=== PATIENT | female | born 2000 | race Caucasian/White ===

== ENCOUNTER 2025-03-30 23:09 | Inpatient (IN) | payer BC ==
[~2025-03-30] VITALS: Ht 180.3 cm; Wt 86.2 kg
[2025-03-31] MEDS ORDERED: AMOX/CLAVULANATE 875 MG TABLET ONE (00:46)
[2025-03-31] MEDS ORDERED: ACETAMINOPHEN 325 MG TABLET ONE ×2 (00:46→08:45)
[2025-03-31] MEDS ORDERED: IBUPROFEN 600 MG TABLET ONE (00:46)
[2025-03-31] MEDS ORDERED: TDAP [DIPH/PERTUSSIS/TET] 0.5 ML VIAL IM ONE (00:46)
[2025-03-31] MEDS: TDAP [DIPH/PERTUSSIS/TET] 0.5 ML VIAL IM ONE (00:52)
[2025-03-31] MEDS: AMOX/CLAVULANATE 875 MG TABLET PO ONE (00:53)
[2025-03-31] MEDS: ACETAMINOPHEN 325 MG TABLET PO ONE (00:53)
[2025-03-31] MEDS: IBUPROFEN 600 MG TABLET PO ONE (00:53)
[2025-03-31] MEDS ORDERED: ONDANSETRON HCL/PF 4 MG/2 ML VIAL ONE (03:33)
[2025-03-31] MEDS ORDERED: MORPHINE SULFATE INJ 4 MG/ML DISP.SYRIN ONE (03:33)
[2025-03-31] MEDS: MORPHINE SULFATE INJ 2 MG/ML DISP.SYRIN IV ONE (03:44)
[2025-03-31] MEDS: ONDANSETRON HCL/PF - ER 4 MG/2 ML VIAL IV ONE (03:44)
[2025-03-31 03:59] LABS: PLATELET COUNT (AUTO) 300 K/uL (150-450); RED BLOOD CELL COUNT(AUTO) 4.48 MIL/uL (4.0-5.2); RED CELL DISTRIBUTION WIDTH 13.6 % (11.5-15.0); WHITE BLOOD COUNT (AUTO) 13.9 K/uL (4.3-11.0)
[2025-03-31 04:05] LABS: CALCIUM, SERUM 9.2 mg/dL (8.5-10.1); CREATININE 0.9 mg/dL (0.6-1.3); SODIUM SERUM 140.0 mmol/L (136-145); UREA NITROGEN, BLOOD 10.0 mg/dL (7-18)
[2025-03-31 04:13] LABS: INR 0.99 (0.91-1.10)
[2025-03-31] MEDS ORDERED: CEFAZOLIN 2 GM ONE (04:39)
[2025-03-31] MEDS: CEFAZOLIN 2 GM in IV D5W 100 ML IV ONE (05:00)
[2025-03-31] MEDS ORDERED: MAGNESIUM HYDROXIDE 30 ML UDC PO PRN (06:30)
[2025-03-31] MEDS ORDERED: DOSE PER PHARMACY (MD SPECIFY MEDICATION) 1 EA IV PRN (06:30)
[2025-03-31] MEDS ORDERED: NORG1TAB73 PO (07:25)
[2025-03-31] MEDS: ACETAMINOPHEN 325 MG TABLET PO PRN (08:51)
[2025-03-31] MEDS ORDERED: AMPICILLIN /SULBACTAM 3 G in IV NS 0.9% 50 ML IJ SCH (10:00)
[2025-03-31] MEDS: IV D5/0.45 NACL 1,000 ML IV PRN (10:40)
[2025-03-31] MEDS: PANTOPRAZOLE 40 MG VIAL IV SCH (10:41)
[2025-03-31] MEDS: ONDANSETRON HCL/PF 4 MG/2 ML VIAL IVP PRN (10:42)
[2025-03-31] MEDS: MORPHINE SULFATE INJ 4 MG/ML DISP.SYRIN IV PRN (10:43)
[2025-03-31] MEDS: AMPICILLIN /SULBACTAM 3 G in IV NS 0.9% 50 ML IV SCH (11:28)
[2025-03-31] MEDS ORDERED: HYDROMORPHONE INJ 2 MG/ML DISP.SYRIN ONE (13:48)
[2025-03-31] MEDS ORDERED: ROCURONIUM BROMIDE 50 MG/5 ML ONE (13:48)
[2025-03-31] MEDS ORDERED: MIDAZOLAM HCL 2 MG/2ML VIAL ONE (13:48)
[2025-03-31] MEDS ORDERED: VANCOMYCIN 1 GM VIAL ONE (13:59)
[2025-03-31] MEDS ORDERED: BUPIVACAINE 0.5 % PF 150 MG/30 ML VIAL ONE (13:59)
[2025-03-31 14:12] LABS: PREGNANCY TEST URINE QUAL NEGATIVE (NEGATIVE)
[2025-03-31] MEDS ORDERED: MORPHINE SULFATE INJ 4 MG/ML DISP.SYRIN IV PRN (16:30)
[2025-03-31] MEDS: HYDROCODONE/APAP 10/325MG TABLET PO PRN (17:53)
[2025-03-31] MEDS: IV D5/0.45 NACL W/20 MEQ KCL 1L IV SCH (18:21)
[2025-03-31 20:00] VITALS: BP 112/70; TEMP 97.7; O2SAT 96
[2025-03-31 22:00] VITALS: BP 112/70; TEMP 97.7; O2SAT 96
[2025-04-01 07:29] LABS: PLATELET COUNT (AUTO) 259 K/uL (150-450); RED BLOOD CELL COUNT(AUTO) 4.10 MIL/uL (4.0-5.2); RED CELL DISTRIBUTION WIDTH 13.6 % (11.5-15.0); WHITE BLOOD COUNT (AUTO) 10.2 K/uL (4.3-11.0)
[2025-04-01 07:30] VITALS: BP 102/62; TEMP 97.7; O2SAT 97
[2025-04-01 07:51] LABS: CALCIUM, SERUM 8.7 mg/dL (8.5-10.1); CREATININE 0.5 mg/dL (0.6-1.3); PHOSPHORUS 3.6 mg/dL (2.5-4.9); SODIUM SERUM 137.0 mmol/L (136-145); UREA NITROGEN, BLOOD 7.0 mg/dL (7-18)
[2025-04-01] MEDS: ONDANSETRON HCL/PF 4 MG/2 ML VIAL IVP PRN (11:50)
[2025-04-01 16:00] VITALS: BP 110/58; TEMP 98.1; O2SAT 98
[2025-04-01 20:00] VITALS: BP 119/59; TEMP 97.9; O2SAT 100
[2025-04-02] MEDS: PANTOPRAZOLE 40 MG TABLET.DR PO SCH (09:24)
[2025-04-02] MEDS ORDERED: AMOX-430 PO (09:53)
== END 2025-04-02 14:00 | disposition home or self-care (01) | DRG 511 ==
LOC: ER 23:16 → MED 03-31 08:20
PROVIDERS: ADMIT Internal Medicine; ATTEND Internal Medicine
PROC: 0PSK04Z Reposition Right Ulna with Internal Fixation Device, Open Approach (ICD-10-PCS; principal; 2025-03-31 14:00)
DX: S52.201B Unspecified fracture of shaft of right ulna, initial encounter for open fracture type I or II (principal); L03.113 Cellulitis of right upper limb; T79.7XXA Traumatic subcutaneous emphysema, initial encounter; W54.0XXA Bitten by dog, initial encounter; Y92.9 Unspecified place or not applicable
CPT/HCPCS: 36415; 71045-TC; 73110; 80048-TC; 83735-TC; 84100-TC; 84703-TC; 85025-TC; 85730-TC; 86850-TC; 90715; A4223; C1713; G0378; J0295; J0690; J1100; J1171; J2250; J2270; J2405; J2470; J2704; J2765; J3373; J3480; J3490; J7030; J7050; J7060